=== PATIENT | male | born 1955 | race Caucasian/White ===

== ENCOUNTER 2020-11-04 13:05 | Outpatient (REF) | payer BC, SELFPAY ==
[2020-11-04 13:54] LABS: MANUAL DIFF FLAG NO
[2020-11-04 13:55] LABS: Glucose Urine UA NEG (NEG); Leukocyte Esterase Urine NEG (NEG); Nitrite Urine NEG (NEG); PH 5.5 (5.0-8.0); Specific Gravity - Urine >= 1.030 (1.005-1.025); Urine Blood TRACE (NEG); Urine Ketones 5 MG/DL (NEG); Urine Protein NEG (NEG-TRACE)
[2020-11-04 13:58] LABS: Basophils Absolute Auto 0.1 X10*3/uL (0.0-0.2); Basophils Percent Auto 1.5 % (0-2); Eosinophils Absolute Auto 0.2 X10*3/uL (0.0-0.4); Hemoglobin 16.1 g/dl (14.0-18.0); Imm Gran Abs Auto 0.02 X10*3/uL (0.00-0.03); Imm Gran Pct Auto 0.3 % (0.0-0.4); Lymphocytes Absolute Auto 1.5 X10*3/uL (1.2-4.9); Mean Corpuscular HGB Conc 33.5 g/dl (31.0-36.0); Mean Corpuscular Hemoglobin 29.7 pg (27.0-33.0); Mean Corpuscular Volume 88.6 fL (80-98); Mean Platelet Volume 9.6 fL (9.4-12.4); Monocytes Absolute Auto 0.6 X10*3/uL (0.1-1.2); Monocytes Percent Auto 9.4 % (2-11); Neutrophils Absolute Auto 3.7 X10*3/uL (2.0-8.3); Neutrophils Percent Auto 61.8 % (45-73); Platelet Count 284 X10*3/uL (160-400); Red Blood Count 5.42 X10*6/uL (4.60-5.80); Red Cell Distribution Width 13.1 % (11.0-16.0); White Blood Count 6.1 X10*3/uL (4.8-10.8)
[2020-11-04 14:00] LABS: Appearance Urine CLEAR; Color Urine YELLOW
[2020-11-04 14:15] LABS: Mucus Urine 2+ /LPF; RBC Urine 0-2 /HPF (0); WBC Urine 0-2 /HPF (0-4)
[2020-11-04 14:17] LABS: Alanine Aminotransferase 13 U/L (0-40); Albumin Level 4.5 g/dL (3.5-5.0); Alkaline Phosphatase 43 U/L (39-117); Anion Gap 14 (12-20); Aspartate Amino Transferase 16 U/L (5-37); Bilirubin Total 0.8 mg/dL (0.0-1.0); Blood Urea Nitrogen 12 mg/dL (9-16); Calcium 9.7 mg/dL (8.4-10.2); Carbon Dioxide 26 mmol/L (22-29); Chloride 106 mmol/L (96-108); Cholesterol 227 mg/dL; Estimated Glomerular Filt Rate > 60; Glucose Fasting 84 mg/dL (60-99); HDL Cholesterol 56 mg/dL; LDL Cholesterol Calculated 156 mg/dl; Potassium 4.2 mmol/L (3.3-5.1); Sodium 142 mmol/L (135-145); Total Protein 7.6 g/dL (6.5-8.0); Triglycerides 79 mg/dL
== END 2020-11-04 13:06 | disposition home or self-care (01) ==
LOC: HO.HMGCLDS 13:05
PROVIDERS: PCP Internal Medicine; Visit Provider Internal Medicine
DX: Z00.01 Encounter for general adult medical examination with abnormal findings (principal); E78.9 Disorder of lipoprotein metabolism, unspecified; R80.9 Proteinuria, unspecified; R94.31 Abnormal electrocardiogram [ECG] [EKG]; R07.89 Other chest pain
CPT/HCPCS: 36415; 80053; 80061; 81001; 81003; 85025

== ENCOUNTER → 2020-11-07 10:08 | Outpatient (REF) | payer BC, SELFPAY ==
--- NOTE | 2020-11-07 10:17 | CA_ITS ---
Acquisition Time: 2020-11-07 10:34:57 Total Exercise Time: 00:10:48 Test Indications: Abnormal ECG Medications: SEE CHART Protocol: ERAN Max HR: 162 BPM 103% of Pred: 156 BPM Max BP: 170/086 mmHG Max Work Load: 13.0 METS Exercise stress test using Eran protocol, total of 10 min 48 sec. METS 13.0, MAPHR up to 103%. Pt tolerated well, denies any anginal sx, EKG without arrhythmias, no ischemic changes seen during exercise or in recovery. Hypertensive response to exercise. Test reviewed with Dr. Quintana. Referred By: Deja Cummings Overread By: Arlette Loyd NP
== END ==
LOC: HO.CARD 10:08
PROVIDERS: PCP Internal Medicine; Visit Provider Internal Medicine
DX: R07.89 Other chest pain (principal); R94.31 Abnormal electrocardiogram [ECG] [EKG]
CPT/HCPCS: 93017

== ENCOUNTER → 2021-02-05 11:55 | Outpatient (BNVA) | payer BC, SELFPAY | PROVIDERS: PCP Internal Medicine; Referring Provider Internal Medicine; Visit Provider Physician Assistant ==

== ENCOUNTER 2021-05-01 10:33 | Day surgery (SDC) | payer BC, SELFPAY ==
[2021-04-21 16:34] VITALS: BMI 23.6
--- NOTE | 2021-04-30 15:50 | HO.ANESPROP2 ---
Documented by User: Elsy Chacon NP 04/30/21 15:53 HPI - Anesthesia Eval Consult details Narrative: 65yo M for Colonoscopy PMFSH Active Problems Active Problems: All Active Problems (Updated 02/05/21 @ 12:23 by Aubrie Lemus PA-C) Colon cancer screening (Acute) Dyspepsia (Acute) Abnormal EKG (Acute) Chest discomfort (Acute) Encounter for general adult medical examination with abnormal findings (Acute) Lipid disorder (Acute) Protein in urine (Acute) Family History Family History Other Mental health disorder Surgical History Surgical History Hx of colonoscopy Social History Social History Housing: House Patient Tobacco Use Status: Former Tobacco user Tobacco use type: Cigarette Are you DNR?: No Advance Directives: No Advance Directives Information Provided: Yes Current occupational status: unemployed and retired Meds Allergies Allergy/AdvReac Type Severity Reaction Status Date / Time No Known Allergies Allergy Verified 02/05/21 12:05 Exam Exam Date and Time: April 30, 2021 1550 Height,Weight and Vital Signs: Height 6 ft Weight 78.925 kg Narrative Narrative: EKG 10/2020 NSR ? inferior and anterior infarcts Exercise Stress 10/2020 Protocol: THEE ? Max HR: 162 BPM? 103% of? Pred: 156 BPM Max BP: 170/086 mmHG Max Work Load: 13.0 METS ? Exercise stress test using Thee protocol, total of 10 min 48 sec. METS 13.0, ?MAPHR up to 103%.? Pt tolerated well, denies any anginal sx,? EKG without ?arrhythmias, no ischemic changes seen during exercise or in recovery. ?Hypertensive response to exercise.? Test reviewed with Dr. Quintana.? Assessment and Plan Assessment Anesthesia Assessment: Chart Reviewed Documented by User: Hipolito Moore MD 05/01/21 11:23 PMFSH Family History Family History Other Mental health disorder Family history of problems with anesthesia: No Surgical History Surgical History Hx of colonoscopy History of Problems with Anesthesia: No Social History Social History Housing: House Patient Tobacco Use Status: Former Tobacco user Tobacco use type: Cigarette Are you DNR?: No Advance Directives: No Advance Directives Information Provided: Yes Current occupational status: unemployed and retired Meds Allergies Allergy/AdvReac Type Severity Reaction Status Date / Time No Known Allergies Allergy Verified 02/05/21 12:05 Exam Airway Mallampati Class: II TM Dist: >3cm Neck ROM: Full Loose/Missing/Broken Teeth: Yes Heart: [id number] Lungs: cta b/l Assessment and Plan Assessment Anesthesia Assessment: Anesthesia Plan Discussed Final Anesthetic Review Family History of Problems with Anesthesia: No History of Problems with Anesthesia: No NPO: Yes ASA Class: III Final Preanesthetic Review: No Changes in Pt Med Stat, Meds/Allgs Chart Reviewed, Consent Obtained/Reviewed and Anes Risks/Benef Reviewed Patient Risk: Intermediate Procedure Risk: Intermediate Assessment/Block/Sedation in SS: Assess/Block/Sedation-SS Anesthetic Plan Anesthetic Plan: MAC: and Agree w/ Assess. and Plan Disposition: Standard PACU
--- NOTE | 2021-05-01 10:58 | MHC.SHP ---
Pre-Procedural Eval Section A Date of Service: 05/01/21 The patient is an INPATIENT: No The History & Physical has been completed within 30 days and I have reviewed it.: No Section B Chief Complaint: screening Details of Present Illness: Colon cancer screening Relevant Family History (Specify if Yes): No Relevant Social History: Tobacco Use (former smoker) Present Medications: see Short Stay Collaborative assessment Medical History: Significant History (Dyspepsia, chest discomfort) History of Previous Operations: Relevant previous surgery/procedure and date(s) (History of colonoscopy) Allergies: Allergies Allergy/AdvReac Type Severity Reaction Status Date / Time No Known Allergies Allergy Verified 02/05/21 12:05 Review of Systems Sugical H&P ROS: Negative: Constitution, Cardiovascular, Respiratory and Gastrointestinal Exam Surgical H&P Exam: Normal: Heart, Normal: Lungs, Normal: Extremities and Normal: Abdomen Plan Diagnosis/Plan: Unchanged I have reviewed the history and physical and performed a pertinent physical examination on my patient. No changes have occurred unless specified.
[2021-05-01 10:59] VITALS: BP 142/89; PULSE 97; RESP 16; TEMP 37; O2SAT 98; BMI 23.6
--- NOTE | 2021-05-01 11:00 | P.OP_ITS ---
Operative Note Operative Note Date of Service: 05/01/21 Narrative: Pre-op diagnosis:?Colon cancer screening (This is his 2nd colonoscopy, 1st colonoscopy in 2008 was negative except sigmoid diverticulosis) Post-op diagnosis:?other (Colon polyp, diverticulosis, hemorrhoids) Procedure:? COLONOSCOPY TILL CECUM WITH BIOPSIES Consent: Indications for the procedure and potential complications of bleeding, perforation, reaction to medications and missed diagnosis were discussed with the patient and informed consent was obtained. Instrument: Olympus PCF H 190 L variable stiffness pediatric colonoscope Monitoring: Vital signs and clinical assessment, intermittent blood pressure monitoring, continuous EKG monitoring, Pulse oximetry and Carbon Dioxide monitoring were done throughout the procedure. Colon withdrawl time was 25 minutes. Procedure: The patient was placed in the left lateral decubitis position and pre-procedure medications were administered. After a digital rectal examination of the ano-rectum, the video colonoscope was inserted into the rectum and advanced through the colon to the cecum. The colonoscope was slowly withdrawn in a retrograde panoramic fashion and the colon mucosa was carefully examined including a retroflexed view of the rectum. Findings and interventions are described below. Procedure Difficulty: Without difficulty Findings: Terminal Ileum: Not evaluated Cecum:? Normal Ascending Colon:? Normal Transverse Colon:? Normal Descending Colon:? Normal Sigmoid Colon:? Moderate diverticulosis Rectum:? A few 3-4 mm diminutive appearing polyps - one removed by cold bx Ano-rectum:? Small internal hemorrhoids Colon preparation:? Fair with a thin layer of adherent stool throughout the colon - no large lesions seen but flat polyps could be missed. Impression and Post Procedure Diagnosis: Colonoscopy Findings: One small diminutive appearing polyp removed Moderate diverticulosis seen in the left colon Small hemorrhoids on retroflexed exam. Plan: Await pathology results Patient has an appointment on 05/25/21 in the [facility] with WENDY Orellana. Repeat Colonoscopy interval based on path results - in 3 years if polyps are adenomatous and due to fair prep despite copious irrigation. Advise using Bisacodyl 2 tablets daily x 5 to 7 days prior to his next colonoscopy to ensure adequate prep. Above findings were reviewed with the patient and colon polyps and diverticulosis handouts were given in the discharge area Surgeon:?Johnny Cornejo MD Anesthesia:?MAC (Corin Antoine CRNA) Was an Special Education Superintendent used for this Procedure?:?Yes Special Education Superintendent:?Amelia Keller Estimated blood loss (mL):?0 Pathology:?other (A- RECTAL POLYP) Condition:?stable Disposition:?PACU
[2021-05-01] MEDS: Lactated Ringers 1,000 ML 100 ML IVCONT (11:15)
[2021-05-01 12:01] VITALS: BP 93/62; PULSE 74; RESP 20; TEMP 36.6
[2021-05-01 12:16] VITALS: BP 109/81; PULSE 85; RESP 20; O2SAT 98
[2021-05-01 12:30] VITALS: BP 106/88; PULSE 73; RESP 18; TEMP 37.2; O2SAT 97
[2021-05-01 12:44] VITALS: BP 115/85
== END 2021-05-01 13:45 | disposition home or self-care (01) ==
PROVIDERS: PCP Internal Medicine; Visit Provider Internal Medicine Gastroenterology
PROC: 0DJD8ZZ Inspection of Lower Intestinal Tract, Via Natural or Artificial Opening Endoscopic (ICD-10-PCS; CPT 45378; principal; 2021-05-01 11:50)
DX: Z12.11 Encounter for screening for malignant neoplasm of colon (principal); K62.1 Rectal polyp; K57.30 Diverticulosis of large intestine without perforation or abscess without bleeding; K64.8 Other hemorrhoids; R10.13 Epigastric pain; R07.89 Other chest pain; Z87.891 Personal history of nicotine dependence
CPT/HCPCS: 45380; 88305

== ENCOUNTER → 2021-05-25 10:52 | Outpatient (BNVA) | payer BC, SELFPAY | PROVIDERS: PCP Internal Medicine; Referring Provider Internal Medicine; Visit Provider Physician Assistant ==

== ENCOUNTER 2021-11-07 07:26 | Outpatient (REF) | payer MEDICARE, SELFPAY ==
[2021-11-07 11:02] LABS: Appearance Urine CLEAR; Color Urine YELLOW; Glucose Urine UA NEG (NEG); Leukocyte Esterase Urine NEG (NEG); Nitrite Urine NEG (NEG); PH 5.5 (5.0-8.0); Specific Gravity - Urine >= 1.030 (1.005-1.025); Urine Blood NEG (NEG); Urine Ketones NEG (NEG); Urine Protein NEG (NEG-TRACE)
[2021-11-07 11:22] LABS: Alanine Aminotransferase 23 U/L (0-40); Albumin Level 4.2 g/dL (3.5-5.0); Alkaline Phosphatase 48 U/L (39-117); Anion Gap 10 (12-20); Aspartate Amino Transferase 18 U/L (5-37); Bilirubin Total 0.6 mg/dL (0.0-1.0); Blood Urea Nitrogen 18 mg/dL (9-16); Carbon Dioxide 28 mmol/L (22-29); Chloride 106 mmol/L (96-108); Cholesterol 223 mg/dL; Estimated Glomerular Filt Rate > 60; Glucose Fasting 98 mg/dL (60-99); HDL Cholesterol 51 mg/dL; LDL Cholesterol Calculated 156 mg/dl; Potassium 4.2 mmol/L (3.3-5.1); Sodium 140 mmol/L (135-145); Total Protein 7.2 g/dL (6.5-8.0); Triglycerides 84 mg/dL
== END 2021-11-07 07:27 | disposition home or self-care (01) ==
LOC: HO.HMGCLDS 07:26
PROVIDERS: Visit Provider Internal Medicine
DX: Z00.01 Encounter for general adult medical examination with abnormal findings (principal); E78.9 Disorder of lipoprotein metabolism, unspecified; R80.9 Proteinuria, unspecified
CPT/HCPCS: 36415; 80053; 80061; 81003

== ENCOUNTER 2022-11-09 15:12 | Outpatient (AMB) | payer MEDICARE, SELFPAY ==
[2022-11-09 15:17] VITALS: BP 122/70; PULSE 90; O2SAT 98; BMI 24.9
--- NOTE | 2022-11-09 15:17 | MHC.PC.OV ---
Vital Signs 11/09/22 15:17 Height 5 ft 10.5 in Weight 176 lb BMI 24.9 BP 122/70 Blood Pressure Location Lt brachial Position Sitting Pulse 90 Pulse Source Pulse Oximeter Pulse Oximetry (%) 98 Oxygen Delivery Method Room Air Intake Visit Reasons: PE Allergies No Known Allergies Allergy (Verified 11/09/22 15:20) Tobacco use date assessed: 11/09/22 Fall risk assessment: No Falls in past year Last assessed Fall Risk: 11/09/22 Dental Screening Dental Screen Date: 11/09/22 Did you have a dental visit in the last 12 months?: Yes Did you have a dental problem in the last 6 months where you did not have access to dental care?: No Was dental information given to patient?: Patient has dentist HPI PE HPI Details Patient is a 66-year-old gentleman came in today for physical examination.? He is taking no medications Colonoscopy was early 2021 Due for regular labs order placed to be done fasting PFSH Surgical History Hx of colonoscopy Family History Other Mental health disorder Social History Housing: House Patient Tobacco Use Status: Former Tobacco user Tobacco use type: Cigarette e-Cigarette/Vaping Use: Never Used Current occupational status: unemployed and retired Cognitive needs: No Hearing needs: No Vision needs: Yes Questionnaire PHQ-9 Over the last 2 weeks, how often have you been bothered by any of the following problems? 1. Little interest or pleasure in doing things: not at all 2. Feeling down, depressed, or hopeless: not at all 3. Trouble falling or staying asleep, or sleeping too much: not at all 4. Feeling tired or having little energy: not at all 5. Poor appetite or overeating: not at all 6. Feeling bad about yourself - or that you are a failure or have let yourself or your family down: not at all 7. Trouble concentrating on things, such as reading the newspaper or watching television: not at all 8. Moving or speaking so slowly that other people could have noticed. Or the opposite - being so fidgety or restless that you have been moving around a lot more than usual: not at all 9. Thoughts that you would be better off or of hurting yourself in some way: not at all Total score: 0 Source: Developed by Drs. Chencho Rosado, Thuy Bowie, Ezekiel Marin and colleagues, with an educational reed from [employer]. Thrive Questionnaire Date Thrive assessed: 11/09/22 I am a: Patient What is your living situation today?: I have a steady place to live Within the past 12 months, did the food you bought not last and you didn't have the money to get more?: Never true Within the past 12 months, did you worry whether your food would run out before you got money to buy more?: Never true Do you have trouble paying for medicines?: No Do you have trouble getting transportation to medical appointments?: No Do you have trouble paying your heating and electricity bill?: No Do you have trouble taking care of your child, family member or friend?: No Do you have trouble with day-to-day activities such as bathing, preparing meals, shopping, managing finances, etc.?: No Are you currently unemployed and looking for a job?: No Are you interested in more education?: No AUDIT C Alcohol Use Questionnaire (AUDIT-C) 1. How often do you have a drink containing alcohol?: Monthly or less 2. How many drinks containing alcohol do you have on a typical day when you are drinking?: 1 or 2 3. How often do you have six or more drinks on one occasion?: Never Total Score: 1 FABRIZIO-7 AMB Questionnaire FABRIZIO-7 Date FABRIZIO - 7 assessed: 11/09/22 Feeling nervous, anxious, or on edge: 0 = Not at all Not being able to stop or control worryin = Not at all Worrying too much about different things: 0 = Not at all Trouble relaxin = Not at all Being so restless that it is hard to sit still: 0 = Not at all Becoming easily annoyed or irritable: 0 = Not at all Feeling afraid as if something awful might happen: 0 = Not at all Total FABRIZIO-7 score (0-4 normal; 5-9 mild; 10-14 moderate; 15-21 severe): 0 Source: Developed by [employer] B.W. Jamir, Ezekiel Marin and colleagues, with an educational reed from [employer]. Review of Systems Const Denies chills, Denies fever(s) and Denies headache(s) Eyes Denies blurry vision ENT Denies headache(s), Denies nasal discharge, Denies nasal obstruction, Denies odynophagia and Denies sinus pain Card Denies chest pain at rest and Denies chest pain with activity Resp Denies cough and Denies hemoptysis GI Denies diarrhea, Denies odynophagia, Denies vomiting and Denies hematemesis Reports as per HPI Musc Denies abnormal gait Skin/Breast Reports as per HPI Neuro Denies Neuro-related abnormal movements, Denies Abnormal speech present, Denies abnormal gait, Denies headache(s) and Denies Sensory deficit (Neuro) Psych Denies mood swings and Denies paranoia Endo Reports as per HPI Christiano/Lymph Reports as per HPI Aller/Immun Reports as per HPI Physical exam (Primary Care) Vital Signs: Last Vital Signs Pulse 90 11/09/22 15:17 BP 122/70 11/09/22 15:17 Pulse Ox 98 11/09/22 15:17 Oxygen Delivery Method Room Air 11/09/22 15:17 BMI result Body Mass Index 24.9 Tobacco/Smoking Status: Tobacco use Status Tobacco use date assessed 11/09/22 11/09/22 15:21 Patient Tobacco Use Status Former Tobacco user 11/09/22 15:19 Tobacco use type Cigarette 11/09/22 15:19 e-Cigarette/Vaping Use Never Used 11/09/22 15:19 PHQ-9: PHQ-9 Score PHQ-9: Total score 0 11/09/22 15:36 Thrive Assessment: Date of Thrive Assessment Date Thrive assessed 11/09/22 11/09/22 15:22 Const General: cooperative, comfortable and no acute distress Orientation/consciousness: patient oriented x3 HENMT Head: Yes normocephalic and Yes atraumatic Eyes General: appearance normal, both eyes and all related structures Pupils: Equal, round and reactive pupils present EOM: EOMs intact bilaterally Neck Neck: Yes supple and No lymphadenopathy Thyroid: Thyroid normal Lymphatic: no lymphadenopathy noted Resp Effort & Inspection: normal respiratory effort and able to speak in complete sentences Auscultation: clear to auscultation bilaterally Cardio Heart sounds: S1 normal heart sound present and S2 normal heart sound present GI Palpation (GI): Soft to palpation and nontender Auscultation: normal bowel sounds General: Yes no CVA tenderness Back/Spine/Pelvis Back: no CVA tenderness Skin General skin exam: elasticity normal and turgor normal Neuro General: patient oriented x3 and gait normal Cranial nerves: Yes Equal, round and reactive pupils present Speech: No Abnormal speech present Sensory Exam: No Sensory deficit (Neuro) Coordination: tandem gait normal and Romberg test negative Extrem General: Yes normal exam except as noted and No edema Assessment and Plan Assessment & Plan (1) Encounter for general adult medical examination with abnormal findings: Code(s): Z00.01 - Encounter for general adult medical examination with abnormal findings (2) Lipid disorder: Code(s): E78.9 - Disorder of lipoprotein metabolism, unspecified Plan Patient is a 66-year-old gentleman came in today for physical examination.? He is taking no medications Colonoscopy was early 2021 Due for regular labs order placed to be done fasting Orders: Orders Comprehensive [place]. Panel Fast Today E78.9 - Disorder of lipoprotein metabolism, unspecified, Z00.01 - Encounter for general adult medical examination with abnormal findings Lipid Panel Today E78.9 - Disorder of lipoprotein metabolism, unspecified, Z00.01 - Encounter for general adult medical examination with abnormal findings Complete Blood Count Auto Diff Today E78.9 - Disorder of lipoprotein metabolism, unspecified, Z00.01 - Encounter for general adult medical examination with abnormal findings Coding Level of Care Code Est Pt Prev Care >65y(49552) Diagnoses Encounter for general adult medical examination with abnormal findings Z00. Lipid disorder E78.9
== END 2022-11-09 16:15 | disposition home or self-care (01) ==
PROVIDERS: Visit Provider Internal Medicine
DX: Z00.01 Encounter for general adult medical examination with abnormal findings (principal); E78.9 Disorder of lipoprotein metabolism, unspecified
CPT/HCPCS: 99397

== ENCOUNTER 2022-11-10 10:39 | Outpatient (REF) | payer MEDICARE, SELFPAY ==
[2022-11-10 13:01] LABS: MANUAL DIFF FLAG NO
[2022-11-10 13:33] LABS: Basophils Percent Auto 1.6 % (0-2); Eosinophils Percent Auto 6.2 % (0-4); Hemoglobin 16.8 g/dl (14.0-18.0); Imm Gran Abs Auto 0.02 X10*3/uL (0.00-0.03); Imm Gran Pct Auto 0.3 % (0.0-0.4); Lymphocytes Absolute Auto 1.9 X10*3/uL (1.2-4.9); Lymphocytes Percent Auto 30.4 % (20-40); Mean Corpuscular HGB Conc 32.9 g/dl (31.0-36.0); Mean Corpuscular Hemoglobin 29.1 pg (27.0-33.0); Mean Corpuscular Volume 88.4 fL (80.0-98.0); Mean Platelet Volume 10.3 fL (9.4-12.4); Monocytes Percent Auto 10.3 % (2-11); Neutrophils Absolute Auto 3.1 x10*3/uL (2.0-8.3); Neutrophils Percent Auto 51.2 % (45-73); Platelet Count 278 X10*3/uL (160-400); Red Blood Count 5.77 X10*6/uL (4.60-5.80); Red Cell Distribution Width 13.2 % (11.0-16.0); White Blood Count 6.1 X10*3/uL (4.8-10.8)
[2022-11-10 13:34] LABS: Basophils Absolute Auto 0.1 X10*3/uL (0.0-0.2); Eosinophils Absolute Auto 0.4 X10*3/uL (0.0-0.4); Monocytes Absolute Auto 0.6 X10*3/uL (0.1-1.2)
[2022-11-11 01:57] LABS: Alanine Aminotransferase 14 U/L (0-40); Albumin Level 4.1 g/dL (3.5-5.0); Alkaline Phosphatase 43 U/L (39-117); Anion Gap 9 (12-20); Aspartate Amino Transferase 15 U/L (5-37); Bilirubin Total 1.3 mg/dL (0.0-1.0); Blood Urea Nitrogen 20 mg/dL (9-16); Calcium 9.2 mg/dL (8.4-10.2); Carbon Dioxide 28 mmol/L (22-29); Chloride 105 mmol/L (96-108); Cholesterol 220 mg/dL; Estimated Glomerular Filt Rate > 60; Glucose Fasting 82 mg/dL (60-99); HDL Cholesterol 48 mg/dL; LDL Cholesterol Calculated 158 mg/dl; Sodium 138 mmol/L (135-145); Total Protein 7.3 g/dL (6.5-8.0); Triglycerides 71 mg/dL
== END 2022-11-10 10:40 | disposition home or self-care (01) ==
LOC: HO.HMGCLDS 10:39
PROVIDERS: PCP Internal Medicine; Visit Provider Internal Medicine
DX: Z00.01 Encounter for general adult medical examination with abnormal findings (principal); E78.9 Disorder of lipoprotein metabolism, unspecified
CPT/HCPCS: 36415; 80053; 80061; 85025

== ENCOUNTER 2023-11-16 15:08 | Outpatient (AMB) | payer MEDICARE, SELFPAY ==
[2023-11-16 15:09] VITALS: BP 120/78; PULSE 78; O2SAT 97; BMI 25.2
--- NOTE | 2023-11-16 15:09 | MHC.PC.OV ---
Vital Signs 11/16/23 15:09 Height 5 ft 10.5 in Weight 178 lb BMI 25.2 BP 120/78 Blood Pressure Location Rt brachial Position Sitting Pulse 78 Pulse Source Pulse Oximeter Pulse Oximetry (%) 97 Oxygen Delivery Method Room Air Intake Visit Reasons: PE Allergies No Known Allergies Allergy (Verified 11/16/23 15:09) Medication List - Last Reconciled 11/16/23 by Deja Cummings MD No Known Home Meds Tobacco use date assessed: 11/16/23 Fall risk assessment: No Falls in past year Last assessed Fall Risk: 11/16/23 Dental Screening Dental Screen Date: 11/16/23 Did you have a dental visit in the last 12 months?: Yes Did you have a dental problem in the last 6 months where you did not have access to dental care?: No Was dental information given to patient?: Patient has dentist HPI PE HPI Details Patient is a 68-year-old gentleman came in today for physical examination.? patient has been working out a lot this summer he says at 3 different occasion, he developed pain sensation over his chest while working, which lasted up to one hour and then got better he tells me it was a rash , because his chest felt red to him how ever he is not sure i have gotten EKG today which shows no acute ST T findings he had ex stress test done in 2020, which came back normal I would like him to be evaluated by cardiology any way, ref created He is taking no medications Colonoscopy was early 2021 Last year he had labs done his total bilirubin level was slightly abnormal We will be repeating labs again this year order placed He offer no complaints PFSH Surgical History Hx of colonoscopy Family History Other Mental health disorder Social History Housing: House Patient Tobacco Use Status: Former Tobacco user Tobacco use type: Cigarette e-Cigarette/Vaping Use: Never Used service: No Current occupational status: unemployed and retired Cognitive needs: No Hearing needs: No Vision needs: Yes Questionnaire PHQ-9 Over the last 2 weeks, how often have you been bothered by any of the following problems? 1. Little interest or pleasure in doing things: not at all 2. Feeling down, depressed, or hopeless: not at all 3. Trouble falling or staying asleep, or sleeping too much: not at all 4. Feeling tired or having little energy: not at all 5. Poor appetite or overeating: not at all 6. Feeling bad about yourself - or that you are a failure or have let yourself or your family down: not at all 7. Trouble concentrating on things, such as reading the newspaper or watching television: not at all 8. Moving or speaking so slowly that other people could have noticed. Or the opposite - being so fidgety or restless that you have been moving around a lot more than usual: not at all 9. Thoughts that you would be better off or of hurting yourself in some way: not at all Total score: 0 Depression Screening Interpretation: Negative Depression Screening Done: Yes 90449 - PHQ-9 Billing: Yes Source: Developed by Drs. Chencho Rosado, Thuy Bowie, Ezekiel Marin and colleagues, with an educational reed from [employer]. Thrive Questionnaire Date Thrive assessed: 11/16/23 I am a: Patient What is your living situation today?: I have a steady place to live Within the past 12 months, did the food you bought not last and you didn't have the money to get more?: Never true Within the past 12 months, did you worry whether your food would run out before you got money to buy more?: Never true Do you have trouble paying for medicines?: No Do you have trouble getting transportation to medical appointments?: No Do you have trouble paying your heating and electricity bill?: No Do you have trouble taking care of your child, family member or friend?: No Do you have trouble with day-to-day activities such as bathing, preparing meals, shopping, managing finances, etc.?: No Are you currently unemployed and looking for a job?: No Are you interested in more education?: No Please select the resources that you would like help with: Housing/Nursing Home Currently or been in a relationship where the following occur: No concerns reported THRIVE Score: 0 AUDIT C Alcohol Use Questionnaire (AUDIT-C) 1. How often do you have a drink containing alcohol?: Monthly or less 2. How many drinks containing alcohol do you have on a typical day when you are drinking?: 1 or 2 3. How often do you have six or more drinks on one occasion?: Never Total Score: 1 Score Reviewed/Action Taken: Yes FABRIZIO-7 AMB Questionnaire FABRIZIO-7 Date FABRIZIO - 7 assessed: 11/16/23 Feeling nervous, anxious, or on edge: 0 = Not at all Not being able to stop or control worryin = Not at all Worrying too much about different things: 0 = Not at all Trouble relaxin = Not at all Being so restless that it is hard to sit still: 0 = Not at all Becoming easily annoyed or irritable: 0 = Not at all Feeling afraid as if something awful might happen: 0 = Not at all Total FABRIZIO-7 score (0-4 normal; 5-9 mild; 10-14 moderate; 15-21 severe): 0 Source: Developed by Drs. Chencho Rosado, Thuy Bowie, Ezekiel Marin and colleagues, with an educational reed from [employer]. FABRIZIO-7 Assessment Billing FABRIZIO-7 Assessment Tool: FABRIZIO-7 Assessment 77595 Review of Systems Const Denies chills, Denies fever(s) and Denies headache(s) Eyes Denies blurry vision ENT Denies headache(s), Denies nasal discharge, Denies nasal obstruction, Denies odynophagia and Denies sinus pain Card Denies chest pain at rest and Denies chest pain with activity Resp Denies cough and Denies hemoptysis GI Denies diarrhea, Denies odynophagia, Denies vomiting and Denies hematemesis Reports as per HPI Musc Denies abnormal gait Skin/Breast Reports as per HPI Neuro Denies Neuro-related abnormal movements, Denies Abnormal speech present, Denies abnormal gait, Denies headache(s) and Denies Sensory deficit (Neuro) Psych Denies mood swings and Denies paranoia Endo Reports as per HPI Christiano/Lymph Reports as per HPI Aller/Immun Reports as per HPI Physical exam (Primary Care) Vital Signs: Last Vital Signs Pulse 78 11/16/23 15:09 BP 120/78 11/16/23 15:09 Pulse Ox 97 11/16/23 15:09 Oxygen Delivery Method Room Air 11/16/23 15:09 BMI result Body Mass Index 25.2 Tobacco/Smoking Status: Tobacco use Status Tobacco use date assessed 11/16/23 11/16/23 15:10 Patient Tobacco Use Status Former Tobacco user 11/16/23 15:10 Tobacco use type Cigarette 11/16/23 15:10 e-Cigarette/Vaping Use Never Used 11/16/23 15:10 PHQ-9: PHQ-9 Score PHQ-9: Total score 0 11/16/23 15:18 Depression Screening Interpretation: Negative Thrive Assessment: Date of Thrive Assessment Date Thrive assessed 11/16/23 11/16/23 15:13 Currently or been in a relationship where the following occur: No concerns reported Const General: cooperative, comfortable and no acute distress Orientation/consciousness: patient oriented x3 HENMT Head: Yes normocephalic and Yes atraumatic Eyes General: appearance normal, both eyes and all related structures Pupils: Equal, round and reactive pupils present EOM: EOMs intact bilaterally Neck Neck: Yes supple and No lymphadenopathy Thyroid: Thyroid normal Lymphatic: no lymphadenopathy noted Resp Effort & Inspection: normal respiratory effort and able to speak in complete sentences Auscultation: clear to auscultation bilaterally Cardio Heart sounds: S1 normal heart sound present and S2 normal heart sound present GI Palpation (GI): Soft to palpation and nontender Auscultation: normal bowel sounds General: Yes no CVA tenderness Back/Spine/Pelvis Back: no CVA tenderness Skin General skin exam: elasticity normal and turgor normal Neuro General: patient oriented x3 and gait normal Cranial nerves: Yes Equal, round and reactive pupils present Speech: No Abnormal speech present Sensory Exam: No Sensory deficit (Neuro) Coordination: tandem gait normal and Romberg test negative Extrem General: Yes normal exam except as noted and No edema Office Procedures EKG 75715-[id number], Complete Assessment and Plan Assessment & Plan (1) Encounter for general adult medical examination with abnormal findings: Code(s): Z00.01 - Encounter for general adult medical examination with abnormal findings (2) Chest pain: Code(s): R07.9 - Chest pain, unspecified Qualifiers: Chest pain type: unspecified Qualified Code(s): R07.9 - Chest pain, unspecified (3) Total bilirubin, elevated: Code(s): R17 - Unspecified jaundice Plan Patient is a 68-year-old gentleman came in today for physical examination.? patient has been working out a lot this summer he says at 3 different occasion, he developed pain sensation over his chest while working, which lasted up to one hour and then got better he tells me it was a rash , because his chest felt red to him how ever he is not sure i have gotten EKG today which shows no acute ST T findings he had ex stress test done in 2020, which came back normal I would like him to be evaluated by cardiology any way, ref created He is taking no medications Colonoscopy was early 2021 Last year he had labs done his total bilirubin level was slightly abnormal We will be repeating labs again this year order placed He offer no complaints Orders: Orders AMB EKG-In Office Today R07.9 - Chest pain, unspecified Complete Blood Count Auto Diff Today R17 - Unspecified jaundice, Z00.01 - Encounter for general adult medical examination with abnormal findings Comprehensive Met. Panel Today R17 - Unspecified jaundice, Z00.01 - Encounter for general adult medical examination with abnormal findings Lipid Panel Today R17 - Unspecified jaundice, Z00.01 - Encounter for general adult medical examination with abnormal findings Referrals Cardiology Referral R07.9 - Chest pain, unspecified Coding Level of Care Code Est Pt Level 4 (84871) Est Pt Prev Care >65y(53110) Diagnoses Encounter for general adult medical examination with abnormal findings Z00.01 Chest pain, unspecified type R07.9 Chest pain type: unspecified Total bilirubin, elevated R17 CPT Codes EKG - CPT: 90946-[id number], Complete ([id number]) Additional Codes FABRIZIO-7 Assessment Billing - FABRIZIO-7 Assessment Tool: FABRIZIO-7 Assessment 53571 ([id number])
== END 2023-11-16 15:43 | disposition home or self-care (01) ==
PROVIDERS: PCP Internal Medicine; Visit Provider Internal Medicine
DX: Z00.01 Encounter for general adult medical examination with abnormal findings (principal); R07.9 Chest pain, unspecified; R17 Unspecified jaundice
CPT/HCPCS: 93000; 99214; 99397

== ENCOUNTER 2023-11-17 10:01 | Outpatient (REF) | payer MEDICARE, SELFPAY ==
[2023-11-17 13:08] LABS: MANUAL DIFF FLAG NO
[2023-11-17 13:29] LABS: Alanine Aminotransferase 10 U/L (0-40); Albumin Level 4.2 g/dL (3.5-5.0); Alkaline Phosphatase 52 U/L (39-117); Anion Gap 12 (12-20); Aspartate Amino Transferase 14 U/L (5-37); Bilirubin Total 1.1 mg/dL (0.0-1.0); Blood Urea Nitrogen 16 mg/dL (9-16); Calcium 9.2 mg/dL (8.4-10.2); Carbon Dioxide 26 mmol/L (22-29); Chloride 105 mmol/L (96-108); Cholesterol 213 mg/dL (<200); Estimated Glomerular Filt Rate > 60; Glucose Random 92 mg/dL (60-115); HDL Cholesterol 48 mg/dL (>40); LDL Cholesterol Calculated 146 mg/dL (<100); Potassium 4.2 mmol/L (3.3-5.1); Sodium 139 mmol/L (135-145); Total Protein 7.5 g/dL (6.5-8.0); Triglycerides 97 mg/dL (<150)
[2023-11-17 13:31] LABS: Basophils Absolute Auto 0.1 X10*3/uL (0.0-0.2); Basophils Percent Auto 1.8 % (0-2); Eosinophils Absolute Auto 0.2 X10*3/uL (0.0-0.4); Eosinophils Percent Auto 3.8 % (0-4); Hemoglobin 16.7 g/dl (14.0-18.0); Imm Gran Abs Auto 0.02 X10*3/uL (0.00-0.03); Imm Gran Pct Auto 0.4 % (0.0-0.4); Lymphocytes Absolute Auto 1.8 X10*3/uL (1.2-4.9); Lymphocytes Percent Auto 31.4 % (20-40); Mean Corpuscular HGB Conc 33.4 g/dl (31.0-36.0); Mean Corpuscular Hemoglobin 29.7 pg (27.0-33.0); Mean Platelet Volume 10.2 fL (9.4-12.4); Monocytes Absolute Auto 0.6 X10*3/uL (0.1-1.2); Monocytes Percent Auto 11.3 % (2-11); Neutrophils Absolute Auto 2.9 x10*3/uL (2.0-8.3); Neutrophils Percent Auto 51.3 % (45-73); Platelet Count 286 X10*3/uL (160-400); Red Blood Count 5.62 X10*6/uL (4.60-5.80); White Blood Count 5.6 X10*3/uL (4.8-10.8)
== END 2023-11-17 10:02 | disposition home or self-care (01) ==
LOC: HO.HMGCLDS 10:01
PROVIDERS: PCP Internal Medicine; Visit Provider Internal Medicine
DX: Z00.01 Encounter for general adult medical examination with abnormal findings (principal); R17 Unspecified jaundice
CPT/HCPCS: 36415; 80053; 80061; 85025

== ENCOUNTER 2023-12-20 10:34 | Outpatient (AMB) | payer MEDICARE, SELFPAY ==
[2023-12-20 11:01] VITALS: BP 120/64; PULSE 91; BMI 24.9
--- NOTE | 2023-12-20 11:01 | MHC.OFFVIS ---
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 No previous history of cardiac issues and no coronary disease or myocardial infarction. He is not a known diabetic or hypertensive. He states that he has had a few episodes of chest pain the last few months. Initially, he thought it was like a sunburn on his chest. It happened in the setting of we trimming. After few weeks, it happened while he was doing treadmill. After stopping it disappeared. Then 1 further episode somewhat randomly. Overall, could be exertional angina. However, in the last few weeks has not had any further pains and he feels fine. Fairly active with no limitations. [facility] Surgical History Hx of colonoscopy Family History (Updated 12/20/23 @ 11:03 by Ramila Aviles CMA) Maternal Grandmother Stroke Other Mental health disorder Social History (Updated 12/20/23 @ 11:03 by Ramila Aviles CMA) Housing: House Alcohol intake: current Comment: rare Patient Tobacco Use Status: Former Tobacco user Tobacco use type: Cigarette e-Cigarette/Vaping Use: Never Used service: No Current occupational status: unemployed and retired Cognitive needs: No Hearing needs: No Vision needs: Yes Review of Systems Const Denies chills, Denies daytime sleepiness, Denies fatigue, Denies fever(s), Denies poor appetite, Denies snoring, Denies stops breathing during sleep, Denies weakness, Denies weight gain and Denies weight loss Eyes Denies loss of vision ENT Denies dizziness and Denies hearing loss Card Denies chest pain, Denies irregular heart rhythm, Denies claudication, Denies leg edema, Denies lightheadedness, Denies palpitations, Denies dyspnea on exertion and Denies orthopnea Resp Denies cough, Denies excessive phlegm production, Denies dyspnea on exertion, Denies snoring and Denies wheezing GI Denies abdominal pain, Denies hematochezia, Denies change in bowel habits, Denies nausea and Denies vomiting Denies dysuria and Denies urinary frequency Musc Denies arthralgias, Denies muscle weakness, Denies numbness and Denies other Skin/Breast Denies nail changes and Denies rash Neuro Denies Abnormal speech present, Denies dizziness, Denies loss of vision, Denies memory loss, Denies numbness and Denies weakness Psych Denies depression and Denies memory loss Endo Denies fatigue and Denies palpitations Christaino/Lymph Denies easy bruising Aller/Immun Denies wheezing Physical Exam Vital Signs: Last Vital Signs Pulse 91 12/20/23 11:01 BP 120/64 12/20/23 11:01 BMI result Body Mass Index 24.9 Const General: comfortable and no acute distress Orientation/consciousness: patient oriented x3 HEENT Other: Unremarkable Head: Yes normal to inspection Neck Neck: Yes normal visual inspection Chest Chest palpation & inspection: normal inspection of the chest Resp Auscultation: clear to auscultation bilaterally Cardio Palpation: normal PMI Heart sounds: S1 normal heart sound present, S2 normal heart sound present, no gallops, no murmurs and no rubs GI Palpation (GI): Soft to palpation Back/Spine/Pelvis Other: unremarkable Skin General skin exam: no rashes or lesions noted Neuro General: patient oriented x3 Speech: No Abnormal speech present Extrem General: Yes normal to inspection Psych Mental Status: mental status grossly normal Assessment & Plan Assessment & Plan (1) Chest pain: Code(s): R07.9 - Chest pain, unspecified Category: Medical Qualifiers: Chest pain type: unspecified Qualified Code(s): R07.9 - Chest pain, unspecified Plan EKG with underlying sinus rhythm; cannot exclude old inferior infarct but could also be nonspecific; normal RI and corrected QT; premature supraventricular complexes. Overall, symptoms could be exertional angina. However, no symptoms in more than a month. Advised to avoid all forms of strenuous physical activity. We will start an echocardiogram and exercise stress perfusion imaging study. Based on this, will plan further workup including possible diagnostic catheterization. In the interim, if any persistent chest pains, advised to contact 911 for help. Orders: Orders CA echo transthoracic complete Today R07.9 - Chest pain, unspecified NM cardiolite stress test Today R07.9 - Chest pain, unspecified CA stress test Today R07.9 - Chest pain, unspecified Coding Level of Care Code New Pt Level 4 (39443) Diagnoses Chest pain, unspecified type R07.9 Chest pain type: unspecified
== END 2023-12-20 16:20 | disposition home or self-care (01) ==
PROVIDERS: PCP Internal Medicine; Visit Provider Internal Medicine
DX: R07.9 Chest pain, unspecified (principal)
CPT/HCPCS: 99204

== ENCOUNTER → 2023-12-20 10:34 | Outpatient (BNVA) | payer MEDICARE, SELFPAY | PROVIDERS: PCP Internal Medicine; Visit Provider Internal Medicine | DX: R07.9 Chest pain, unspecified (principal) | CPT/HCPCS: 99202 ==

== ENCOUNTER → 2023-12-21 08:29 | Outpatient (REF) | payer MEDICARE, SELFPAY ==
--- NOTE | 2023-12-21 08:32 | CA_ITS ---
Transthoracic Echocardiogram Patient (Last, First, Middle): Ken Bah K Gender: Male Date of : 1955 Age: 68 Procedure Date: 12/21/2023 Procedure Type: Transthoracic Echocardiogram Location: OP Height: 177.8 cm Weight: 79.83 kg BSA: 1.98 m2 Heart Rate: bpm BP: 124 / 86 mmHg Temporary Staff Accountant: ROBBIE Referring MD: Héctor Mcgovern MD Swatcher: Fritz Perez MD Symptoms: R07.9 - Chest pain, unspecified Study Quality: Adequate ECG Rhythm: Sinus Conclusions: - 1. Normal LV ejection fraction of 60 65% with grade 1 diastolic dysfunction 2. Normal cardiac valvular Doppler 3. Mildly dilated ascending aorta at 3.9 cm 4. No gross pericardial effusion Findings Left Ventricle Normal left ventricular size, thickness, and systolic function. The visually estimated ejection fraction is between 60-65%. Spectral Doppler is indicative of an impaired relaxation filling pattern. E/E prime ratio is <8, consistent with normal filling pressures. Evidence suggests grade I (mild) diastolic dysfunction. Right Ventricle Normal right ventricular cavity size and systolic function. Atria The left atrium is normal in size. There is no evidence of interatrial shunt. The right atrium is normal in size. Aortic Valve Normal aortic valve structure and function. There is no aortic valve stenosis. There is no aortic valve regurgitation. Mitral Valve Normal mitral valve structure and function. There is trace mitral valve regurgitation. There is no mitral valve stenosis. Pulmonic Valve The pulmonic valve is likely normal. Tricuspid Valve Likely normal tricuspid valve structure and function. Tricuspid regurgitation envelope is inadequate for calculation of right ventricular systolic pressure. Normal right atrial pressure. Great Vessels The pulmonary artery was not well visualized. There is mild dilatation of the ascending aorta measuring 3.90 cm. Venous The inferior vena cava is normal in size and collapses greater than 50% with inspiration. Pericardium/Pleural There is no evidence of pericardial effusion. Prior Study Comparison No prior study available for comparison. Measurements 2D Linear Measurements IVSd: 0.98 0.6-0.9/0.6-1.0 cm LVIDd: 3.89 3.9-5.3/4.2-5.9 cm LVIDd Index: 1.96 2.4-3.2/2.2-3.1 cm/m2 LVIDs: 2.18 2.0-3.6 cm LVPWd: 0.78 0.7-1.1 cm LA Diam: 3.80 2.7-3.8/3.0-4.0 cm LAIDs Index: 1.92 1.5-2.3 cm/m2 LV Mass: 126.76 67-162/88-224 g LV Mass Index: 64.02 43-95/49-115 g/m2 LVOT Diam: 2.10 3.0+(-)1.3 cm 2D Systolic Function EF 4C: 65.30 >55% EF 2C: 64.50 >55% EF BiP: 64.50 >55% Mitral Valve MV Pk E: 0.58 MV PK A: 0.79 MV Decel Time: 231.00 E/A: 0.70 E'Lateral: 8.38 E'Medial: 5.33 E/E' Med: 10.80 E/E' Lat: 6.90 PHT: 68.00 MVA PHT: 3.24 Decel Eagle: 2.51 Aortic Valve AoV Pk Len: 1.42 AoV Mn Len: 1.02 AoV VTI: 0.29 AoV Pk Grad: 8.00 Aov Mn Grad: 5.00 KARLOS Cont.VTI: 2.83 LVOT LVOT Pk Len: 1.33 LVOT Mn Len: 0.79 LVOT VTI: 0.24 LVOT Pk Grad: 7.00 LVOT Mn Grad: 3.00 LVOT Diam: 2.10 LVOT Area: 3.46 Diastolic Function MV Pk E: 0.58 MV Pk A: 0.79 E/A: 0.70 E'Medial: 5.33 E/E' Med: 10.80 E' Laterial: 8.38 E/E' Lat: 6.90 Right Ventricle TAPSE (mm): 24.40 TVS' Len: 12.50 Tricuspid Valve RA Press: 3.00 Great Vessels Aorta Sinus of Valsalva: 3.34 2.0-3.[address] Ridge: 2.83 1.7-3.4 cm Ao Asc: 3.90 2.1-3.4 cm Updated in Other Vendor System with Status of Final Fritz Perez MD electronically signed on 12/21/2023 2:03:37 PM with status of Final
== END ==
LOC: HO.CARD 08:29
PROVIDERS: PCP Internal Medicine; Visit Provider Internal Medicine
DX: R07.9 Chest pain, unspecified (principal)
CPT/HCPCS: 93306

== ENCOUNTER → 2023-12-21 08:32 | Outpatient (BNV) | payer MEDICARE, SELFPAY | PROVIDERS: PCP Internal Medicine; Visit Provider Internal Medicine Cardiovascular Disease | DX: I51.89 Other ill-defined heart diseases (principal) | CPT/HCPCS: 93306 ==

== ENCOUNTER → 2023-12-22 07:35 | Outpatient (REF) | payer MEDICARE, SELFPAY ==
--- NOTE | ~2023-12-22 | NM_ITS ---
EXERCISE MYOCARDIAL PERFUSION STUDY INDICATION: Chest pain TECHNIQUE: The patient was brought in for an exercise perfusion study on 12/22/2023. Patient performed exercise as per Thee protocol and was injected 25 mCi of sestamibi once target heart rate was achieved. Images were obtained using the SPECT gamma camera interlaced with the gating device. Images were obtained in supine position. Resting perfusion study was performed on 12/23/2023. Patient was administered 25 mCi of sestamibi intravenously at rest. Images were then obtained in supine position. Total DLP 89 mGy-cm. Images were processed with the software and compared side to side in short axis, horizontal long axis and vertical long axis views. FINDINGS: Raw aquisition reviewed. The stress perfusion study showed diminished tracer uptake along the inferior wall. There is improvement with CT attenuation correction and hence suggestive of diaphragmatic attenuation artifact. The gated study shows normal LV systolic function with calculated LVEF of 71%. LV cavity is normal in size. The gated study shows normal wall thickening and contraction of segments. Resting study shows diminished tracer uptake along the inferior wall. There is improvement with CT attenuation correction suggestive of diaphragmatic attenuation artifact. Gating at rest reveals normal wall motion with ejection fraction at 70%. The findings are consistent with fixed inferior perfusion defect suggestive of diaphragmatic attenuation artifact. No clear reversal defects. NM/NM cardiolite stress test IMPRESSION: 1. Myocardial perfusion imaging study shows likely normal myocardial perfusion. 2. Gated LVEF is 71% during stress and 70% during rest. 3. Transient ischemic dilatation not present. EKG component of the test reported separately. Electronically signed by: Héctor Mcgovern MD 12/27/2023 09:32 AM EDT
--- NOTE | 2023-12-22 07:38 | CA_ITS ---
Acquisition Time: 2023-12-22 07:48:45 Total Exercise Time: 00:09:00 Test Indications: CP Medications: SEE H Protocol: ERAN Max HR: 164 BPM 107% of Pred: 153 BPM Max BP: 164/084 mmHG Max Work Load: 10.4 METS Exercise stress test with exercise 9 min of Eran protocol, achieving > 85% MPHR, with mild sob, no chest discomfort, with isolated PACs, one 10 beat run of atrial tach in stage 3, with normotensive response to exercise, without EKG changes meeting criteria for ischemia. Nuclear images pending. Test reviewed with Dr Perez Referred By: Héctor Mcgovern Overread By: HEIDI PARRA
== END ==
LOC: HO.CARD 07:35
PROVIDERS: PCP Internal Medicine; Visit Provider Internal Medicine
DX: R07.9 Chest pain, unspecified (principal)
CPT/HCPCS: 78452; 93017; A9500

== ENCOUNTER → 2023-12-22 07:38 | Outpatient (BNV) | payer MEDICARE, SELFPAY | PROVIDERS: PCP Internal Medicine; Visit Provider Nurse Practitioner Family | DX: R07.9 Chest pain, unspecified (principal) | CPT/HCPCS: 78452; 93016; 93018 ==

== ENCOUNTER 2024-03-07 10:45 | Outpatient (AMB) | payer MEDICARE, SELFPAY ==
[2024-03-07 10:47] VITALS: BP 98/64; PULSE 66; BMI 26.1
--- NOTE | 2024-03-07 10:47 | A.OFFVIS_ITS ---
Vital Signs 03/07/24 10:47 Height 5 ft 10.5 in Weight 184 lb 11.958 oz BMI 26.1 BP 98/64 Blood Pressure Location Lt brachial Position Sitting Pulse 66 Pulse Source Pulse Oximeter Intake Visit Reasons: follow up Patient Service Rep Required: No Accompanied by: Self / Same As Patient Allergies No Known Allergies Allergy (Verified 11/16/23 15:09) Medication List - Last Reconciled 03/07/24 by Héctor Mcgovern MD No Known Home Meds HPI Comments Details: Ken returns for follow-up. Few months back, he was seen in consultation regarding chest pains. No previous history of cardiac issues and no coronary disease or myocardial infarction. He is not a known diabetic or hypertensive. He states that he has had a few episodes of chest pain the last few months. Initially, he thought it was like a sunburn on his chest. It happened in the setting of weed trimming. After few weeks, it happened while he was doing treadmill. Then one further episode somewhat randomly. In the last few months, he has not had any issues whatsoever. No further chest pains. He is fairly active without limitations. He states he feels like his normal self. He has completed an echocardiogram and stress test. [facility] Surgical History Hx of colonoscopy Family History Maternal Grandmother Stroke Other Mental health disorder Social History Housing: House Alcohol intake: current Comment: rare Patient Tobacco Use Status: Former Tobacco user Tobacco use type: Cigarette e-Cigarette/Vaping Use: Never Used service: No Current occupational status: unemployed and retired Cognitive needs: No Hearing needs: No Vision needs: Yes Review of Systems Const Denies chills, Denies fatigue, Denies fever(s), Denies weight gain and Denies weight loss ENT Denies dizziness Card Denies chest pain, Denies leg edema, Denies lightheadedness, Denies palpitations, Denies dyspnea on exertion, Denies orthopnea and Denies other Resp Denies cough and Denies dyspnea on exertion GI Denies hematochezia and Denies change in stool character Musc Denies abnormal gait, Denies muscle weakness, Denies numbness, Denies radiating pain into limb and Denies tingling Neuro Denies abnormal gait, Denies dizziness, Denies numbness and Denies tingling Endo Denies fatigue and Denies palpitations Physical Exam Vital Signs: Last Vital Signs Pulse 66 03/07/24 10:47 BP 98/64 03/07/24 10:47 BMI result Body Mass Index 26.1 Const General: comfortable and no acute distress Orientation/consciousness: patient oriented x3 HEENT Other: Unremarkable Head: Yes normal to inspection Neck Neck: Yes normal visual inspection Chest Chest palpation & inspection: normal inspection of the chest Resp Auscultation: clear to auscultation bilaterally Cardio Palpation: normal PMI Heart sounds: S1 normal heart sound present, S2 normal heart sound present, no gallops, no murmurs and no rubs GI Palpation (GI): Soft to palpation Back/Spine/Pelvis Other: unremarkable Skin General skin exam: no rashes or lesions noted Neuro General: patient oriented x3 Extrem General: Yes normal to inspection Psych Mental Status: mental status grossly normal Assessment & Plan Assessment & Plan (1) Chest pain: Code(s): R07.9 - Chest pain, unspecified Category: Medical Qualifiers: Chest pain type: unspecified Qualified Code(s): R07.9 - Chest pain, unspecified Plan Cardiac studies reviewed. EKG with underlying sinus rhythm; cannot exclude old inferior infarct but could also be nonspecific; normal ME and corrected QT; premature supraventricular complexes. In the echocardiogram, LVEF 60-65%. Mild diastolic dysfunction. No significant valvular findings. Ascending aortic size borderline enlarged at 3.9 cm but up to 4 cm still acceptable. In the stress test, he was able to exercise for 9 minutes on Thee protocol and reached 10.4 METS. Appropriate heart rate response. Atrial arrhythmias noted. Normal blood pressure response. No angina. Perfusion imaging was unremarkable. Overall, chest discomfort episodes but resolved for the last few months and unremarkable stress testing with excellent exercise tolerance. At this time, we decided to hold off on further workup. If he gets any further episodes, advised him to contact us and then consider coronary CTA. With regard to the borderline ascending aortic size, no specific management for now but can consider repeating another echocardiogram through his PCP in 3-4 years, Coding Level of Care Code Est Pt Level 3 (55468) Diagnoses Chest pain, unspecified type R07.9 Chest pain type: unspecified
== END 2024-03-07 11:00 | disposition home or self-care (01) ==
PROVIDERS: PCP Internal Medicine; Visit Provider Internal Medicine
DX: R07.9 Chest pain, unspecified (principal)
CPT/HCPCS: 99213

== ENCOUNTER → 2024-03-07 10:45 | Outpatient (BNVA) | payer MEDICARE, SELFPAY | PROVIDERS: PCP Internal Medicine; Visit Provider Internal Medicine | DX: R07.9 Chest pain, unspecified (principal) | CPT/HCPCS: 99212 ==

== ENCOUNTER 2024-08-02 10:53 | Outpatient (AMB) | payer MEDICARE, SELFPAY ==
--- NOTE | 2024-08-02 10:54 | A.OFFVIS_ITS ---
Vital Signs 08/02/24 10:56 Height 5 ft 10 in Weight 183 lb BMI 26.3 BP 110/71 Blood Pressure Location Lt brachial Position Sitting Pulse 78 Pulse Oximetry (%) 98 Oxygen Delivery Method Room Air Intake Visit Reasons: pre colonoscopy / [facility] pt Intake Note: Patient complex follow up for pre colonoscopy screening/ [facility] nj 05/25/2021, last Colonoscopy was 05/01/[address] Cornejo with 3 yrs colonoscopy recall. Patient denes any GI issues for today. Urinalysis Technician Required: No Accompanied by: Self / Same As Patient Allergies No Known Allergies Allergy (Verified 08/02/24 11:17) HPI HPI pre colonoscopy / [facility] pt: Details: Patient is a 69-year-old male with PMH of diverticulosis, dyspepsia and hyperlipidemia. Last visit with WENDY Pedraza 05/25/2021 for follow-up after colonoscopy. His last colonoscopy was in 2021 with findings of polyp and notation of fair prep Pt is here today for pre-screening for colonoscopy. He reports feeling overall well, denies any GI symptoms/concerns Patient denies: systemic symptoms, n/v, appetite changes, unintentional wt loss, dysphasia, pulmonary symptoms, bladder changes or melena/hematochezia. reports hx of cardiac symptoms, workup by [facility] negative and symptoms have resolved. Social hx: approx 1oz shot of neyda or unspecified amount of beer 3-4x/month marijuana use 3-4x/month, denies other recreational drug use former smoker, cessation 25 years ago denies personal hx of CA Family hx: Father, lung CA passed at age 55 denies lvier, kidney or gallbladder dieses PFSH Surgical History Hx of colonoscopy Family History Maternal Grandmother Stroke Other Mental health disorder Social History Housing: House Alcohol intake: current Comment: rare Patient Tobacco Use Status: Former Tobacco user Tobacco use type: Cigarette e-Cigarette/Vaping Use: Never Used service: No Current occupational status: unemployed and retired Cognitive needs: No Hearing needs: No Vision needs: Yes Review of Systems Const All systems reviewed & are unremarkable except as noted in HPI and below Physical Exam Vital Signs: Last Vital Signs Pulse 78 08/02/24 10:56 BP 110/71 08/02/24 10:56 Pulse Ox 98 08/02/24 10:56 Oxygen Delivery Method Room Air 08/02/24 10:56 BMI result Body Mass Index 26.3 Const General: healthy appearing, no acute distress and well developed Nutritional Appearance: well nourished Orientation/consciousness: patient oriented x3 HEENT Head: Yes normal to inspection, Yes normocephalic and Yes atraumatic Face and sinus: Yes normal facial exam Eyes General: appearance normal, both eyes and all related structures Neck Neck: Yes normal visual inspection Resp Effort & Inspection: normal respiratory effort, able to speak in complete sentences, no tracheal deviation and symmetric chest movement Auscultation: clear to auscultation bilaterally Cardio Jugular venous distension: no JVD Rate: regular rate Rhythm: regular rhythm Heart sounds: S1 normal heart sound present, S2 normal heart sound present, no gallops and no murmurs GI Inspection: Yes normal to inspection and No distended Palpation (GI): Soft to palpation, not firm, nontender and No hepatosplenomegaly present Auscultation: normal bowel sounds Neuro General: patient oriented x3 Gait exam (Neuro): Normal gait present Psych Appearance: grossly normal Mental Status: mental status grossly normal Speech and movement: Normal speech and movement present Affect: normal affect Attitude: cooperative Thought process: Normal thought process present Thought content: Normal thought content present Insight: Good insight present (Psych) Judgement: Good judgement present (Psych) Results Reviewed Results Reviewed: Date of Service: 05/01/21 Procedure: COLONOSCOPY TILL CECUM WITH BIOPSIES Procedure: The patient was placed in the left lateral decubitis position and pre-procedure medications were administered. After a digital rectal examination of the ano-rectum, the video colonoscope was inserted into the rectum and advanced through the colon to the cecum. The colonoscope was slowly withdrawn in a retrograde panoramic fashion and the colon mucosa was carefully examined including a retroflexed view of the rectum. Findings and interventions are described below. Procedure Difficulty: Without difficulty Findings: Terminal Ileum: Not evaluated Cecum: Normal Ascending Colon: Normal Transverse Colon: Normal Descending Colon: Normal Sigmoid Colon: Moderate diverticulosis Rectum: A few 3-4 mm diminutive appearing polyps - one removed by cold bx Ano-rectum: Small internal hemorrhoids Colon preparation: Fair with a thin layer of adherent stool throughout the colon - no large lesions seen but flat polyps could be missed. Impression and Post Procedure Diagnosis: Colonoscopy Findings: One small diminutive appearing polyp removed Moderate diverticulosis seen in the left colon Small hemorrhoids on retroflexed exam. Plan: Await pathology results Patient has an appointment on 05/25/21 in the GI [facility] with WENDY Orellana. Repeat Colonoscopy interval based on path results - in 3 years if polyps are adenomatous and due to fair prep despite copious irrigation. Advise using Bisacodyl 2 tablets daily x 5 to 7 days prior to his next colonoscopy to ensure adequate prep. pathology Received: 05/01/21 Diagnosis Colon, rectal polyp: Hyperplastic polyp Assessment & Plan Assessment & Plan (1) Hyperplastic colon polyp: Comment: colonoscopy: 2nd was 2021 with Colon, rectal polyp: Hyperplastic polyp; 1st colonoscopy in 2008 was negative except sigmoid diverticulosis Code(s): K63.5 - Polyp of colon Category: Medical Qualifiers: Colon location: unspecified part of colon Qualified Code(s): K63.5 - Polyp of colon Plan: Three year repeat screening colonoscopy, following fair prep colonoscopy in 2021 with findings of Colon, rectal polyp: Hyperplastic polyp. Extensive education on prep and procedure expectations. We will trial two bisacodyl tablets/nightly X 3 days leading to procedure in addition to MiraLax split prep ( includes 3 bisacodyl tablets) . Prep Rx'd to preferred pharmacy. Plan After colonoscopy as needed Time: I spent a total of 45 minutes on the date of encounter which includes: Preparing to see the patient (reviewed previous documentation, test results and medical history) Performing a medically appropriate exam and/or evaluation Ordering medications, tests, and procedures Documenting clinical information in the health record Medications: New bisacodyl Take 2 tablets daily X 3 days, followed by 2 tablets once the day prior to colonoscopy ( per colonoscopy instructions) 5 mg PO ONCE 4 days 8 tabs 0RF polyethylene glycol 3350 (Miralax) per colonoscopy prep instructions 238 grams PO ONCE 238 grams 0RF Coding Level of Care Code Established Pt Est Pt Level 3 (63534) Patient Type Established Diagnoses Hyperplastic colonic polyp, unspecified part of colon K63.5 Colon location: unspecified part of colon
[2024-08-02 10:56] VITALS: BP 110/71; PULSE 78; O2SAT 98; BMI 26.3
--- OUTSIDE RECORDS SUMMARY | 2024-08-02 13:03 | XMS_ITS | Clinical Summary ---
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 [employer] Name Role Phone Unavailable Primary Care Provider Unavailabl e Social History Tobacco Use Types Packs/Day Years Used Date Smoking Tobacco: Never Assessed Sex and Gender Information Value Date Recorded Sex Assigned at Not on file Legal Sex Male 9:32 PM EST Gender Identity Not on file Sexual Orientation Not on file Plan of Treatment Health Maintenance Due Date Last Done Comments DTaP,Tdap,and Td Vaccines (1 - Tdap) 07/04/1975 Pneumococcal Vaccine: 50+ Ye ars (1 of 1 - PCV) 2006 Zoster Vaccines (1 of 2) 2006 COVID-19 Vaccine ( - 2023-2 5 season) 2023 Influenza Vaccine (Season Ended) 2024 RSV Immunization Adult Patie nts (1 - 1-dose 75+ series) 07/04/2031 HIB Vaccines Aged Out No longer eligi ble based on patient's age to complete this topic HPV Vaccines Aged Out No longer eligi ble based on patient's age to complete this topic Hepatitis A Vaccines Aged Out No long er eligible based on patient's age to complete this topic Hepatitis B Vaccines Aged Out No long er eligible based on patient's age to complete this topic IPV Vaccines Aged Out No longer eligi ble based on patient's age to complete this topic MMR Vaccines Aged Out No longer eligi ble based on patient's age to complete this topic Meningococcal ACWY Vaccine Aged Out N o longer eligible based on patient's age to complete this topic Meningococcal B Vaccine Aged Out No l onger eligible based on patient's age to complete this topic RSV Immunization Patients Un nelson 20 months Aged Out No longer eligible b ased on patient's age to complete this topic Varicella Vaccines Aged Out No longer eligible based on patient's age to complete this topic
== END 2024-08-02 15:15 | disposition home or self-care (01) ==
LOC: HO.HGI 10:54
PROVIDERS: PCP Internal Medicine; Visit Provider Nurse Practitioner Family
DX: Z01.818 Encounter for other preprocedural examination (principal); Z12.11 Encounter for screening for malignant neoplasm of colon; Z86.0102 Personal history of hyperplastic colon polyps
CPT/HCPCS: 99024

== ENCOUNTER → 2024-08-02 10:53 | Outpatient (BNVA) | payer MEDICARE, SELFPAY | PROVIDERS: PCP Internal Medicine; Visit Provider Nurse Practitioner Family | DX: K63.5 Polyp of colon (principal) | CPT/HCPCS: 99212 ==

== ENCOUNTER 2024-10-19 10:20 | Day surgery (SDC) | payer MEDICARE, SELFPAY ==
--- OUTSIDE RECORDS SUMMARY | 2024-10-12 11:52 | XMS_ITS | Clinical Summary ---
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
[2024-10-17 14:38] VITALS: BMI 26.3
--- NOTE | 2024-10-18 11:55 | HO.ANESPROP2 ---
Documented by User: Elsy Chacon NP 10/18/24 11:57 HPI - Anesthesia Eval Consult details Narrative: 69yo M for Colonoscopy 2023 cardiac w/u with [facility] for CP all negative. PRN f/u only PMFSH Active Problems Active Problems: All Active Problems Chest pain (Acute) Total bilirubin, elevated (Acute) Skin cancer screening (Acute) Diverticulosis of colon (Acute) Hyperplastic colon polyp (Acute) Colon cancer screening (Acute) Dyspepsia (Acute) Abnormal EKG (Acute) Chest discomfort (Acute) Encounter for general adult medical examination with abnormal findings (Acute) Lipid disorder (Acute) Protein in urine (Acute) Past Medical History Medical History (Updated 10/17/24 @ 14:41 by Crystal Middleton RN) Dyspepsia Diverticulosis Ascending aorta dilatation Chest pain Lipid disorder Family History Family History Maternal Grandmother Stroke Other Mental health disorder Family history of problems with anesthesia: No Surgical History Surgical History (Updated 10/19/24 @ 12:36 by Abbey Edgar RN) H/O detached retina repair Hx of colonoscopy History of Problems with Anesthesia: No Social History Social History Housing: House Alcohol intake: current Comment: rare Patient Tobacco Use Status: Former Tobacco user Tobacco use type: Cigarette e-Cigarette/Vaping Use: Never Used Use of substances other than those prescribed or required for medical reasons: Yes Advance Directives: No Advance Directives Information Provided: Yes Poor oral hygiene: No service: No Current occupational status: unemployed and retired Cognitive needs: No Hearing needs: No Vision needs: Yes Meds Allergies Allergy/AdvReac Type Severity Reaction Status Date / Time No Known Allergies Allergy Verified 08/02/24 11:17 Home Medications ?Medication ?Instructions ?Recorded ?Confirmed ?Last Taken ?Type No Known Home Meds 10/19/24 10/19/24 Unknown History Exam Height,Weight and Vital Signs: Height 5 ft 10 in Weight 83.007 kg Narrative Narrative: Per 2023 cardiac office visit: EKG with underlying sinus rhythm; cannot exclude old inferior infarct but could also be nonspecific; normal AL and corrected QT; premature supraventricular complexes. In the echocardiogram, LVEF 60-65%. Mild diastolic dysfunction. No significant valvular findings. Ascending aortic size borderline enlarged at 3.9 cm but up to 4 cm still acceptable. In the stress test, he was able to exercise for 9 minutes on Thee protocol and reached 10.4 METS. Appropriate heart rate response. Atrial arrhythmias noted. Normal blood pressure response. No angina. Perfusion imaging was unremarkable. Assessment and Plan Assessment Anesthesia Assessment: Chart Reviewed Final Anesthetic Review Family History of Problems with Anesthesia: No History of Problems with Anesthesia: No Documented by User: Bri Orlando MD 10/19/24 13:40 [facility] Past Medical History Medical History (Updated 10/17/24 @ 14:41 by Crystal Middleton RN) Dyspepsia Diverticulosis Ascending aorta dilatation Chest pain Lipid disorder Family History Family History Maternal Grandmother Stroke Other Mental health disorder Surgical History Surgical History (Updated 10/19/24 @ 12:36 by Abbey Edgar RN) H/O detached retina repair Hx of colonoscopy Social History Social History Housing: House Alcohol intake: current Comment: rare Patient Tobacco Use Status: Former Tobacco user Tobacco use type: Cigarette e-Cigarette/Vaping Use: Never Used Use of substances other than those prescribed or required for medical reasons: Yes Advance Directives: No Advance Directives Information Provided: Yes Poor oral hygiene: No service: No Current occupational status: unemployed and retired Cognitive needs: No Hearing needs: No Vision needs: Yes Meds Allergies Allergy/AdvReac Type Severity Reaction Status Date / Time No Known Allergies Allergy Verified 08/02/24 11:17 Home Medications ?Medication ?Instructions ?Recorded ?Confirmed ?Last Taken ?Type No Known Home Meds 10/19/24 10/19/24 Unknown History Exam Airway Mallampati Class: II (implant, cap) TM Dist: >3cm Neck ROM: Full Heart: rrr Lungs: cts Assessment and Plan Assessment Anesthesia Assessment: Anesthesia Plan Discussed Final Anesthetic Review NPO: Yes ASA Class: II Final Preanesthetic Review: No Changes in Pt Med Stat, Meds/Allgs Chart Reviewed and Consent Obtained/Reviewed Patient Risk: Low Procedure Risk: Low Anesthetic Plan Anesthetic Plan: MAC: Disposition: Standard PACU
--- NOTE | 2024-10-19 12:11 | MHC.SHP ---
Pre-Procedural Eval Section A - 24 Hr Update-Section A only Date of Service: 10/19/24 Section B - Complete if H&P > 30 days Chief Complaint: Encounter for screening for malignant neoplasm of Relevant Family History (Specify if Yes): No Relevant Social History: Other (specify) Present Medications: see Short Stay Collaborative assessment Medical History: Significant History (diverticulosis, dyspepsia and hyperlipidemia) History of Previous Operations: Relevant previous surgery/procedure and date(s) (colonoscopy ) Allergies: Allergies Allergy/AdvReac Type Severity Reaction Status Date / Time No Known Allergies Allergy Verified 08/02/24 11:17 Review of Systems Sugical H&P ROS: Negative: Constitution, Cardiovascular, Respiratory, Neurological, Psychiatric, Hem-Onc, Allergic/Immunologic, Gastrointestinal, Genitourinary, Musculoskeletal, Integumentary, Endocrine and Eyes/Ears/Nose/Throat Exam Surgical H&P Exam: Normal: HEENT, Normal: Heart, Normal: Lungs, Normal: Extremities, Normal: Abdomen, Normal: Skin and Normal: Neurological Plan Diagnosis/Plan: Unchanged I have reviewed the history and physical and performed a pertinent physical examination on my patient. No changes have occurred unless specified. Time Spent With Patient Time: Total time managing care of this patient today ____ minutes.
[2024-10-19 12:39] VITALS: BMI 24.1
[2024-10-19 12:44] VITALS: BP 147/81; PULSE 70; RESP 16; TEMP 36.3; O2SAT 96
--- NOTE | 2024-10-19 13:51 | HO.OPN-COLON ---
Colonoscopy Operative Note Operative Note Date of Service: 10/19/24 Narrative: Operative Information Procedure Description: Colonoscopy Indication: screening Anesthesia: MAC COLONOSCOPY Instrument: Olympus variable stiffness pediatric scope 190L Colonoscopy Monitoring: Vital signs and clinical assessment, continuous EKG monitoring, Pulse oximetry, Carbon Dioxide monitoring and blood pressure monitoring were done throughout the procedure. Colon withdrawal time was 6 minutes. Procedure: The patient was placed in the left lateral decubitis position and pre-procedure medications were administered. After a digital rectal examination of the ano-rectum, the video colonoscope was inserted into the rectum and advanced through the colon to the cecum/TI. The colonoscope was slowly withdrawn in a retrograde panoramic fashion and the colon mucosa was carefully examined including a retroflexed view of the rectum. Findings and interventions are described below. Procedure Difficulty: easy Findings: Terminal Ileum-normal Cecum:normal Ascending Colon: normal Transverse Colon -normal Descending Colon: diverticulosis, moderate Sigmoid Colon: severe diverticulosis Rectum: Retroflexion with small internal hemorrhoids seen, grade I Anorectum - normal Intervention: none Colon preparation: [place] Bowel Preparation Scale Right colon; 2 Transverse colon: 2 Left colon; 1-2 (0 = Unprepared colon segment with mucosa not seen due to solid stool that cannot be cleared. 1 = Portion of mucosa of the colon segment seen, but other areas of the colon segment not well seen due to staining, residual stool and/or opaque liquid. 2 = Minor amount of residual staining, small fragments of stool and/or opaque liquid, but mucosa of colon segment seen well. 3 = Entire mucosa of colon segment seen well with no residual staining, small fragments of stool or opaque liquid) Impression and Post Procedure Diagnosis: diverticulosis internal hemorrhoids Plan: High fiber diet leaflet Avoid straining at stool, epsom salts and sitz bath, anusol supps or cream Repeat Colonoscopy in 5 years due to fair prep on left or earlier if clinically indicated Above findings were reviewed with the patient and relevant handouts were provided if indicated.
[2024-10-19 13:55] VITALS: BP 102/68; PULSE 56; RESP 16; TEMP 36.4; O2SAT 98
[2024-10-19 14:10] VITALS: BP 109/77; PULSE 61; RESP 17; TEMP 36.3; O2SAT 95
== END 2024-10-19 14:36 | disposition home or self-care (01) ==
PROVIDERS: PCP Internal Medicine; Visit Provider Internal Medicine Gastroenterology
PROC: 0DJD8ZZ Inspection of Lower Intestinal Tract, Via Natural or Artificial Opening Endoscopic (ICD-10-PCS; CPT 45378; principal; 2024-10-19 13:00)
DX: Z12.11 Encounter for screening for malignant neoplasm of colon (principal); K57.30 Diverticulosis of large intestine without perforation or abscess without bleeding; K64.0 First degree hemorrhoids; E78.5 Hyperlipidemia, unspecified
CPT/HCPCS: G0121; J2003; J2704

== ENCOUNTER → 2024-10-19 10:20 | Outpatient (BNV) | payer MEDICARE, SELFPAY | PROVIDERS: PCP Internal Medicine; Visit Provider Internal Medicine Gastroenterology | DX: Z12.11 Encounter for screening for malignant neoplasm of colon (principal); K57.90 Diverticulosis of intestine, part unspecified, without perforation or abscess without bleeding; K64.0 First degree hemorrhoids | CPT/HCPCS: G0121 ==

== ENCOUNTER 2024-11-28 15:17 | Outpatient (AMB) | payer MEDICARE, SELFPAY ==
[2024-11-28 15:18] VITALS: BP 122/76; PULSE 66; O2SAT 98; BMI 23.9
--- NOTE | 2024-11-28 15:18 | A.OFFPC_ITS ---
Vital Signs 11/28/24 15:18 Height 5 ft 11 in Weight 171 lb 8 oz BMI 23.9 BP 122/76 Blood Pressure Location Lt brachial Position Sitting Pulse 66 Pulse Source Pulse Oximeter Pulse Oximetry (%) 98 Oxygen Delivery Method Room Air Intake Visit Reasons: PE Medical Coding Instructor Required: No Allergies No Known Allergies Allergy (Verified 11/28/24 15:18) Medication List - Last Reconciled 11/28/24 by Deja Cummings MD No Known Home Meds Tobacco use date assessed: 11/28/24 Fall risk assessment: No Falls in past year Last assessed Fall Risk: 11/28/24 Dental Screening Dental Screen Date: 11/28/24 Did you have a dental visit in the last 12 months?: Yes Did you have a dental problem in the last 6 months where you did not have access to dental care?: No Was dental information given to patient?: Patient has dentist HPI PE HPI Details Physical exam appointment The patient is a 69-year-old male presenting with annual wellness check. Hypercholesterolemia: - Previously diagnosed and noted to have slightly elevated cholesterol levels, specifically 146, but with some improvement noted in recent checks. - Dietary modifications with the additio n of fish oil are being employed by the patient as a method to manage this condition. Diverticulosis: - Detected during colonoscopy exams, wit h no complications reported during the latest examination in September of the current year. Hemorrhoids: - Patient reports history of hemorrhoids , noted during colonoscopy with no active bleeding or significant discomfort recently. - Occasional itchiness during flares but no significant episodes currently. Status post hyperplastic polyp removal: - Last year (2021), patient had a hyperp lastic polyp removed which prompted a three-year schedule for colonoscopy surveillance. - Current recommendation based on most r ecent colonoscopy is a repeat in five years. Mild diastolic dysfunction: - Detected in a previous echocardiogram. - Monitoring suggested with repeat echoc ardiogram in 2026 unless symptoms progress. Borderline enlarged ascending aorta: Diagnosed at cardiology office at echocardiogram - Noted in a previous examination, measu ring 3.9 cm, still within acceptable brewer its of 4.0, but will require monitoring. , EKG with underlying sinus rhythm, premature supraventricular complexes, mild diastolic dysfunction, ascending aortic size borderline enlarged at 3.9 cm Medical History: - Hypercholesterolemia - Diverticulosis - Hemorrhoids - Status post hyperplastic polyp removal (2021) - History of possible heart murmur as a child - Mild diastolic dysfunction Social History: - Engages in regular physical activity; noted to be active and working out more during summer months. - Adapts dietary habits such as reducing sugar intake and increasing the use of protein supplements in coffee. - Engages in weight management practices ; noted a weight loss of around 12 pounds since September. Health Maintenance - Colonoscopy recommended in 2029. - Tetanus vaccine administered in 2020. - Pneumonia and Zoster vaccines received in 2022. - Cholesterol level improvement noted dietary modifications advised. - Echocardiogram to be repeated in 2026 due to aortic enlargement. - Advice on high fiber diet and avoiding straining to manage hemorrhoids. Diagnostic results - Labs: Previous CBC, kidney function, a nd electrolyte levels were normal; cholesterol level was slightly elevated at 146. - Tests and Diagnostics: Echocardiogram showed mild diastolic dysfunction and a borderline enlarged ascending aorta. - Colonoscopy (September year): Showe d no new polyp formation; presence of diverticulosis and hemorrhoids noted. Patient Instructions - Undergo cholesterol and blood test. - Follow a high-fiber diet and avoid str aining to prevent hemorrhoid flares. - Schedule a colonoscopy for 2029. - Continue physical activity and dietary changes; monitor weight. Review of Systems - General: No fever no chills - Neurological: No headaches no dizzin ess - Ear nose throat: No sore throat no hearing difficulty no ear pain - Cardiovascular: No syncope, no chest pain, no palpitations - Gastrointestinal: No nausea vomiting or diarrhea - Endocrine: No polyuria polydipsia no heat intolerance - Genitourinary: No dysuria - Skin: No new complaints Physical Exam General: Cooperative, healthy appearing, comfortable, no acute distress Orientation: Patient oriented x3 Head: Normal to inspection Ears: Within normal limit visually, no pain in the ears Nose: Normal external nose present Face and sinus: Normal facial exam Eyes: Appearance normal, extraocular movement intact pupils reactive Neck: Normal visual inspection and supple, no lymphadenopathy Respiratory: Normal respiratory effort and able to speak in complete sentences. Clear to auscultation, no stridor Cardiovascular: S1 and S2 RRR GI: Abdomen is benign, bowels sound positive, soft to palpation and nontender Skin: Turgor normal, no acute findings Neuro: Patient oriented x3, motor sensory intact, balance intact, tandem pass Extremities: Normal to inspection, full range of motion in shoulders, elbows, hips, and knees, no swelling, no pain in the calf, no pain with percussion in the back [facility] Medical History Dyspepsia Diverticulosis Ascending aorta dilatation Chest pain Lipid disorder Surgical History H/O detached retina repair Hx of colonoscopy Family History Maternal Grandmother Stroke Other Mental health disorder Social History Housing: House Alcohol intake: current Comment: rare Patient Tobacco Use Status: Former Tobacco user Tobacco use type: Cigarette e-Cigarette/Vaping Use: Never Used service: No Current occupational status: unemployed and retired Cognitive needs: No Hearing needs: No Vision needs: Yes Questionnaire PHQ-9 Over the last 2 weeks, how often have you been bothered by any of the following problems? 1. Little interest or pleasure in doing things: not at all 2. Feeling down, depressed, or hopeless: not at all 3. Trouble falling or staying asleep, or sleeping too much: not at all 4. Feeling tired or having little energy: not at all 5. Poor appetite or overeating: not at all 6. Feeling bad about yourself - or that you are a failure or have let yourself or your family down: not at all 7. Trouble concentrating on things, such as reading the newspaper or watching television: not at all 8. Moving or speaking so slowly that other people could have noticed. Or the opposite - being so fidgety or restless that you have been moving around a lot more than usual: not at all 9. Thoughts that you would be better off or of hurting yourself in some way: not at all Total score: 0 Depression Screening Interpretation: Negative Depression Screening Done: Yes 44996 - PHQ-9 Billing: Yes Source: Developed by Drs. Chencho Rosado, Thuy Bowie, Ezekiel Marin and colleagues, with an educational reed from [employer]. Thrive Questionnaire Date Thrive assessed: 11/28/24 I am a: Patient What is your living situation today?: I have a steady place to live Within the past 12 months, did the food you bought not last and you didn't have the money to get more?: Never true Within the past 12 months, did you worry whether your food would run out before you got money to buy more?: Never true Do you have trouble paying for medicines?: No Do you have trouble getting transportation to medical appointments?: No Do you have trouble paying your heating and electricity bill?: No Do you have trouble taking care of your child, family member or friend?: No Do you have trouble with day-to-day activities such as bathing, preparing meals, shopping, managing finances, etc.?: No Are you currently unemployed and looking for a job?: No Are you interested in more education?: No Please select the resources that you would like help with: None Currently or been in a relationship where the following occur: No concerns reported THRIVE Score: 0 AUDIT C Alcohol Use Questionnaire (AUDIT-C) 1. How often do you have a drink containing alcohol?: 2-4 times a month 2. How many drinks containing alcohol do you have on a typical day when you are drinking?: 1 or 2 3. How often do you have six or more drinks on one occasion?: Never Total Score: 2 Score Reviewed/Action Taken: Yes FABRIZIO-7 AMB Questionnaire FABRIZIO-7 Date FABRIZIO - 7 assessed: 11/28/24 Feeling nervous, anxious, or on edge: 0 = Not at all Not being able to stop or control worryin = Not at all Worrying too much about different things: 0 = Not at all Trouble relaxin = Not at all Being so restless that it is hard to sit still: 0 = Not at all Becoming easily annoyed or irritable: 0 = Not at all Feeling afraid as if something awful might happen: 0 = Not at all Total FABRIZIO-7 score (0-4 normal; 5-9 mild; 10-14 moderate; 15-21 severe): 0 Source: Developed by Drs. Chencho Rosado, Thuy Bowie, Ezekiel Marin and colleagues, with an educational reed from [employer]. FABRIZIO-7 Assessment Billing FABRIZIO-7 Assessment Tool: FABRIZIO-7 Assessment 41776 Physical exam (Primary Care) Vital Signs: Last Vital Signs Pulse 66 11/28/24 15:18 BP 122/76 11/28/24 15:18 Pulse Ox 98 11/28/24 15:18 Oxygen Delivery Method Room Air 11/28/24 15:18 BMI result Body Mass Index 23.9 Tobacco/Smoking Status: Tobacco use Status Tobacco use date assessed 11/28/24 11/28/24 15:19 Patient Tobacco Use Status Former Tobacco user 11/28/24 15:19 Tobacco use type Cigarette 11/28/24 15:19 e-Cigarette/Vaping Use Never Used 11/28/24 15:19 PHQ-9: PHQ-9 Score PHQ-9: Total score 0 11/28/24 15:19 Depression Screening Interpretation: Negative Thrive Assessment: Date of Thrive Assessment Date Thrive assessed 11/28/24 11/28/24 15:19 Currently or been in a relationship where the following occur: No concerns reported Coding Level of Care Code Est Pt Level 3 (71969) Est Pt Prev Care >65y(45906) Diagnoses Encounter for general adult medical examination with abnormal findings Z00.01 Lipid disorder E78.9 Hemorrhoids, internal K64.8 Diverticulosis K57.90 Supraventricular premature beats I49.1 Additional Codes FABRIZIO-7 Assessment Billing - FABRIZIO-7 Assessment Tool: FABRIZIO-7 Assessment 87968 ([id number]) PHQ-9 - 90966 - PHQ-9 Billing: Yes ([id number]) Assessment & Plan Assessment & Plan (1) Encounter for general adult medical examination with abnormal findings: Code(s): Z00.01 - Encounter for general adult medical examination with abnormal findings Category: Medical (2) Lipid disorder: Code(s): E78.9 - Disorder of lipoprotein metabolism, unspecified Category: Medical (3) Hemorrhoids, internal: Code(s): K64.8 - Other hemorrhoids Category: Medical (4) Diverticulosis: Code(s): K57.90 - Diverticulosis of intestine, part unspecified, without perforation or abscess without bleeding Category: Medical (5) Supraventricular premature beats: Code(s): I49.1 - Atrial premature depolarization Category: Medical Plan Physical exam appointment The patient is a 69-year-old male presenting with annual wellness check. Hypercholesterolemia: - Previously diagnosed and noted to have slightly elevated cholesterol levels, specifically 146, but with some improvement noted in recent checks. - Dietary modifications with the addition of fish oil are being employed by the patient as a method to manage this condition. Diverticulosis: - Detected during colonoscopy exams, with no complications reported during the latest examination in September of the current year. Hemorrhoids: - Patient reports history of hemorrhoids, noted during colonoscopy with no active bleeding or significant discomfort recently. - Occasional itchiness during flares but no significant episodes currently. Status post hyperplastic polyp removal: - Last year (2021), patient had a hyperplastic polyp removed which prompted a three-year schedule for colonoscopy surveillance. - Current recommendation based on most recent colonoscopy is a repeat in five years. Mild diastolic dysfunction: - Detected in a previous echocardiogram. - Monitoring suggested with repeat echocardiogram in 2026 unless symptoms progress. Borderline enlarged ascending aorta: Diagnosed at cardiology office at echocardiogram - Noted in a previous examination, measuring 3.9 cm, still within acceptable limits of 4.0, but will require monitoring. , EKG with underlying sinus rhythm, premature supraventricular complexes, mild diastolic dysfunction, ascending aortic size borderline enlarged at 3.9 cm Medical History: - Hypercholesterolemia - Diverticulosis - Hemorrhoids - Status post hyperplastic polyp removal (2021) - History of possible heart murmur as a child - Mild diastolic dysfunction Social History: - Engages in regular physical activity; noted to be active and working out more during summer months. - Adapts dietary habits such as reducing sugar intake and increasing the use of protein supplements in coffee. - Engages in weight management practices; noted a weight loss of around 12 pounds since September. Health Maintenance - Colonoscopy recommended in 2029. - Tetanus vaccine administered in 2020. - Pneumonia and Zoster vaccines received in 2022. - Cholesterol level improvement noted with dietary modifications advised. - Echocardiogram to be repeated in 2026 due to aortic enlargement. - Advice on high fiber diet and avoiding straining to manage hemorrhoids. Diagnostic results - Labs: Previous CBC, kidney function, and electrolyte levels were normal; bell sterol level was slightly elevated at 146. - Tests and Diagnostics: Echocardiogram showed mild diastolic dysfunction and a borderline enlarged ascending aorta. - Colonoscopy (September year): Showed no new polyp formation; presence of diverticulosis and hemorrhoids noted. Patient Instructions - Undergo cholesterol and blood test. - Follow a high-fiber diet and avoid straining to prevent hemorrhoid flares. - Schedule a colonoscopy for 2029. - Continue physical activity and dietary changes; monitor weight. Orders: Orders Complete Blood Count Auto Diff Today E78.9 - Disorder of lipoprotein metabolism, unspecified, K57.90 - Diverticulosis of intestine, part unspecified, without perforation or abscess without bleeding, K64.8 - Other hemorrhoids, Z00.01 - Encounter for general adult medical examination with abnormal findings Comprehensive [place]. Panel Fast Today E78.9 - Disorder of lipoprotein metabolism, unspecified, K57.90 - Diverticulosis of intestine, part unspecified, without perforation or abscess without bleeding, K64.8 - Other hemorrhoids, Z00.01 - Encounter for general adult medical examination with abnormal findings Lipid Panel Today E78.9 - Disorder of lipoprotein metabolism, unspecified, K57.90 - Diverticulosis of intestine, part unspecified, without perforation or abscess without bleeding, K64.8 - Other hemorrhoids, Z00.01 - Encounter for general adult medical examination with abnormal findings
--- OUTSIDE RECORDS SUMMARY | 2024-11-28 15:46 | XMS_ITS | Patient Health Record ---
Author Organization [facility] Address [address] [place] [id number] Care Team Providers Care Supervisor Beehive Kiln Name Role Phone Chencho Kauffman Unavailable [phone] Reason For Referral No Information Plan Of Treatment No Information
--- OUTSIDE RECORDS SUMMARY | 2024-11-28 15:46 | XMS_ITS | Clinical Summary ---
Author Organization [facility] ity Address [address] [place] [address] Care Team Providers Care Manager Rn Case Name Role Phone Unavailable Primary Care Provider [...] Vaccines (1 of 2) 2006 COVID-19 Vaccine (1 - 2023-2 5 season) 2023 Depression Screening 04/25/2024 Influenza Vaccine (#1) 2024 RSV Immunization Adult Patie nts (1 [...]
== END 2024-11-28 15:49 | disposition home or self-care (01) ==
LOC: HO.HMCC 15:18
PROVIDERS: PCP Internal Medicine; Visit Provider Internal Medicine
DX: Z00.01 Encounter for general adult medical examination with abnormal findings (principal); E78.9 Disorder of lipoprotein metabolism, unspecified; K64.8 Other hemorrhoids; K57.90 Diverticulosis of intestine, part unspecified, without perforation or abscess without bleeding; I49.1 Atrial premature depolarization

== ENCOUNTER → 2024-11-28 15:17 | Outpatient (BNVA) | payer MEDICARE, SELFPAY | PROVIDERS: PCP Internal Medicine; Visit Provider Internal Medicine | DX: Z00.01 Encounter for general adult medical examination with abnormal findings (principal); E78.00 Pure hypercholesterolemia, unspecified; K57.90 Diverticulosis of intestine, part unspecified, without perforation or abscess without bleeding; K64.9 Unspecified hemorrhoids; K64.8 Other hemorrhoids; I49.1 Atrial premature depolarization; Z86.0109 Personal history of other colon polyps | CPT/HCPCS: 96127; 99397 ==

== ENCOUNTER 2024-11-29 10:30 | Outpatient (REF) | payer MEDICARE, SELFPAY ==
--- OUTSIDE RECORDS SUMMARY | 2024-11-29 11:08 | XMS_ITS | Patient Health Record ---
Author Organization [facility] Address [address] [place] [id number] Care Team Providers Care Explosives Truck Driver Name Role Phone Chencho Kauffman Unavailable [phone] Reason For Referral No Information Plan Of Treatment No Information
--- OUTSIDE RECORDS SUMMARY | 2024-11-29 11:08 | XMS_ITS | Clinical Summary ---
Author Organization [facility] ity Address [address] [place] [address] Care Team Providers Care Gang Pusher Name Role Phone Unavailable Primary Care Provider [...]
[2024-11-29 13:20] LABS: MANUAL DIFF FLAG NO
[2024-11-29 13:32] LABS: Hematocrit 47.7 % (42.0-52.0); Hemoglobin 16.5 g/dl (14.0-18.0); Imm Gran Abs Auto 0.01 X10*3/uL (0.00-0.03); Imm Gran Pct Auto 0.2 % (0.0-0.4); Lymphocytes Absolute Auto 1.5 X10*3/uL (1.2-4.9); Mean Corpuscular HGB Conc 34.6 g/dl (31.0-36.0); Mean Corpuscular Hemoglobin 30.3 pg (27.0-33.0); Mean Corpuscular Volume 87.5 fL (80.0-98.0); NRBC Abs Auto 0.000 X10*3/uL (0.0-0.012); NRBC Pct Auto 0.0 /100WBC (0.0-0.2); Platelet Count 263 X10*3/uL (160-400); Red Blood Count 5.45 X10*6/uL (4.60-5.80); White Blood Count 4.9 X10*3/uL (4.8-10.8)
[2024-11-29 13:52] LABS: Alanine Aminotransferase 17 U/L (0-40); Albumin Level 4.5 g/dL (3.5-5.0); Alkaline Phosphatase 50 U/L (39-117); Anion Gap 10 (12-20); Aspartate Amino Transferase 24 U/L (5-37); Blood Urea Nitrogen 22 mg/dL (9-16); Calcium 9.1 mg/dL (8.4-10.2); Carbon Dioxide 29 mmol/L (22-29); Chloride 105 mmol/L (96-108); Cholesterol 198 mg/dL (<200); Estimated Glomerular Filt Rate > 60; HDL Cholesterol 48 mg/dL (>40); Potassium 4.1 mmol/L (3.3-5.1); Sodium 140 mmol/L (135-145); Total Protein 7.5 g/dL (6.5-8.0); Triglycerides 73 mg/dL (<150)
== END 2024-11-29 10:31 | disposition home or self-care (01) ==
LOC: HO.HMGCLDS 10:30
PROVIDERS: PCP Internal Medicine; Visit Provider Internal Medicine
DX: Z00.01 Encounter for general adult medical examination with abnormal findings (principal); E78.9 Disorder of lipoprotein metabolism, unspecified; K64.8 Other hemorrhoids; K57.90 Diverticulosis of intestine, part unspecified, without perforation or abscess without bleeding
CPT/HCPCS: 36415; 80053; 80061; 85025